=== PATIENT | female | born 1965 | race Caucasian/White ===

== ENCOUNTER 2021-01-29 07:54 | Inpatient (IN) ==
[2021-01-29] MEDS ORDERED: ANCEF 1 GRAM IV PREMIX* 2 G/100 ML BAG IV ONE (08:02)
[2021-01-29] MEDS ORDERED: LR 1000 ML IV 1,000 ML IV ONE (08:02)
[2021-01-29] MEDS ORDERED: DILAUDID INJ ONE ×2 (08:25→09:08)
[2021-01-29] MEDS ORDERED: CATAPRES TAB 0.3 MG ONE (08:49)
[2021-01-29] MEDS ORDERED: CATAPRES TAB 0.3 MG PO ONE (08:51)
[2021-01-29] MEDS ORDERED: BACTROBAN TOPICAL OINT ONE (08:57)
[2021-01-29] MEDS ORDERED: BRIDION ONE (09:08)
[2021-01-29] MEDS ORDERED: DECADRON INJ ONE ×2 (09:08→09:10)
[2021-01-29] MEDS ORDERED: TORADOL 30 MG VIAL ONE ×2 (09:08→09:10)
[2021-01-29] MEDS ORDERED: ZEMURON 50 MG VIAL ONE (09:09)
[2021-01-29] MEDS ORDERED: OFIRMEV IV 1000 MG VIAL 1,000 MG/100 ML VIAL IV ONE (09:09)
[2021-01-29] MEDS ORDERED: NS 1000 ML 1,000 ML ONE (09:09)
[2021-01-29] MEDS ORDERED: DIPRIVAN VIAL ONE (09:10)
[2021-01-29] MEDS ORDERED: VERSED ONE (09:10)
[2021-01-29] MEDS ORDERED: ZOFRAN INJ 4 MG VIAL ONE (09:10)
[2021-01-29] MEDS ORDERED: NORMODYNE INJ 20 MG VIAL ONE (09:10)
[2021-01-29] MEDS ORDERED: ULTANE GAS IN ONE (09:10)
[2021-01-29] MEDS ORDERED: POLYMYXIN B SULFATE ONE (11:10)
[2021-01-29] MEDS ORDERED: BARHEMSYS INJ IVP PRN (12:00)
[2021-01-29] MEDS ORDERED: REGLAN INJ 10 MG VIAL IVP PRN (12:00)
[2021-01-29] MEDS ORDERED: ZOFRAN INJ 4 MG VIAL IVP PRN ×2 (12:00→14:32)
[2021-01-29] MEDS ORDERED: PHENERGAN INJ 25 MG IM PRN (12:00)
[2021-01-29] MEDS ORDERED: BENADRYL INJ 50 MG VIAL IVP PRN (12:00)
[2021-01-29] MEDS ORDERED: DILAUDID INJ IVP PRN (12:00)
[2021-01-29 14:29] VITALS: BMI 36.1
[2021-01-29] MEDS ORDERED: D5 1/2 NS 1000 ML 1,000 ML IV ONE (15:30)
[2021-01-29] MEDS ORDERED: APRESOLINE INJ 20 MG VIAL IVP PRN (16:50)
[2021-01-29] MEDS: D5 1/2 NS 1000 ML 1,000 ML IV SCH ×2 (17:38→23:53)
[2021-01-29] MEDS: MORPHINE SULFATE INJ 4 MG IVP PRN (22:50)
[2021-01-30] MEDS: MORPHINE SULFATE INJ 4 MG IVP PRN ×2 (02:00→06:08)
[2021-01-30] MEDS: D5 1/2 NS 1000 ML 1,000 ML IV SCH ×2 (02:25→06:38)
[2021-01-30 06:28] LABS: BASOPHILS % (AUTO) 0.4 % (0.2-1.0); EOSINOPHILS % (AUTO) 0.6 % (0.9-2.9); HEMOGLOBIN 15.1 g/dL (12.0-16.0); LYMPHOCYTES # (AUTO) 1.4 X10^3/uL (1.3-2.9); LYMPHOCYTES % (AUTO) 19.1 % (21.0-51.0); MEAN CORPUSCULAR HEMOGLOBIN 29.6 pg (27.0-34.0); MEAN CORPUSCULAR HGB CONC 35.2 g/dL (33.0-35.0); MEAN PLATELET VOLUME 11.4 fL (7.4-11.0); MONOCYTES # (AUTO) 0.6 x10^3/uL (0.3-0.8); MONOCYTES % (AUTO) 7.8 % (0.0-13.0); NEUTROPHILS # (AUTO) 5.3 x10^3/uL (2.2-4.8); NEUTROPHILS % (AUTO) 72.1 % (42.0-75.0); PLATELET COUNT 120 X10^3/uL (150.0-450.0); RED BLOOD COUNT 5.12 X10^6/uL (3.5-5.4); RED CELL DISTRIBUTION WIDTH 13.9 % (11.6-16.5); WHITE BLOOD COUNT 7.3 X10^3/uL (3.6-10.0)
[2021-01-30 06:33] LABS: ALANINE AMINOTRANSFERASE 40 Units/L (12-78); ALBUMIN 3.2 g/dL (3.4-5.0); ALKALINE PHOSPHATASE 69 Units/L (46-116); ASPARTATE AMINO TRANSFERASE 57 Units/L (15-37); BLOOD UREA NITROGEN 14 mg/dL (7-18); CALCIUM 8.9 mg/dL (8.5-10.1); CARBON DIOXIDE 33.6 mmol/L (21-32); CHLORIDE 96 mmol/L (98-107); COR CA(FOR HYPOALB) 9.5 mg/dL (8.5-10.1); COR NA(FOR HYPERGLY) 140 mmol/L (136-145); CREATININE 0.67 mg/dL (0.55-1.02); SODIUM 136 mmol/L (136-145); TOTAL PROTEIN 7.2 g/dL (6.4-8.2); eGFR NON BLACK RACES > 60 (>60)
[2021-01-30] MEDS ORDERED: HumuLIN R SC PRN (08:06)
[2021-01-30] MEDS ORDERED: PERCOCET TAB 5/325 MG PO PRN (08:17)
[2021-01-30] MEDS ORDERED: ZESTRIL TAB 20 MG ONE (08:59)
[2021-01-30] MEDS ORDERED: ZESTRIL TAB 20 MG PO SCH (09:00)
[2021-01-30] MEDS ORDERED: PROTONIX INJ 40 MG VIAL IVP SCH (09:00)
[2021-01-30] MEDS ORDERED: INDERAL TAB 10 MG PO SCH (09:00)
[2021-01-30] MEDS ORDERED: TORADOL TAB PO PRN (09:14)
[2021-01-30] MEDS ORDERED: DIABETA PO SCH (11:00)
[2021-01-30] MEDS ORDERED: GLUCOPHAGE PO SCH (11:00)
[2021-01-30] MEDS ORDERED: GLUCOPHAGE ONE (11:34)
[2021-01-30 12:15] VITALS: BP 125/60
--- NOTE | 2021-01-30 14:01 | DR.CONSULT ---
CONSULT Consultation for Day of: Date: 02/03/21 Chief Complaint Chief Complaint: Abdominal pain Allergies Allergies Allergy/AdvReac Type Severity Reaction Status Date / Time codeine AdvReac Verified 11/06/18 11:57 History of Present Illness History of Present Illness: Ms. Eddy is a 55y/o female with a PMH of HTN, Type 2 DM was seen outpatient due to having recurrent admissions for biliary colic. Patient was seeing Dr Fairbanks and was scheduled to have cholecystectomy as outpatient. The patient was found to have left side gallbladder position as well as the liver irregularities and possible early cirrhosis. The liver was on the left side. The gallbladder anatomy was somewhat distorted so patient had to have a open procedure and had cholecystectomy without any complications. Her BP was elevated yesterday and received one dose of clonidine. She does take lisinopril and propranolol at home. Past Medical History Past Medical History: Diabetes and Hypertension Past Surgical History Surgical History: Family History Family Medical History: Diabetes Mellitus, Cancer, [place], Coronary Artery Disease, Heart Failure and Hypertension Social History Does patient currently use any type of tobacco product: No Have you used tobacco products in the last 12 months: No Type of Tobacco Use: None Does any household member use tobacco: No Alcohol Use: Occasionally Drug Use: None Medications Home Medications: codeine Adverse Reaction (Verified 11/06/18 11:57) CONTINUE taking the following medications fluconazole 200 mg PO WEEKLY 01/30/21 [History] glyburide 10 mg PO DAILY 01/30/21 [History] metformin 1,000 mg PO DAILY 01/30/21 [History] ondansetron 8 mg PO TID 01/30/21 [History] propranolol 20 mg PO DAILY 01/30/21 [History] sertraline 100 mg PO BID 01/30/21 [History] tramadol 100 mg PO Q8H PRN 01/30/21 [History] New Prescriptions ketorolac 10 mg PO Q6H PRN #15 tab 01/30/21 [Rx] Review of Systems Constitutional: No Symptoms Reported Eyes: No Symptoms Reported ENT: No Symptoms Reported Respiratory: No Symptoms Reported Gastrointestinal: Nausea, Vomiting and Abdominal Pain Genitourinary: No Symptoms Reported Musculoskeletal: No Symptoms Reported Skin: No Symptoms Reported Neurological: No Symptoms Reported Physical Exam Vital Signs: Temperature 98.7 F Pulse Rate [Radial] 92 Pulse Rate 88 Respiratory Rate 20 Blood Pressure [Right Arm] 125/60 Blood Pressure [Left Arm] 188/86 Blood Pressure 146/67 O2 Sat by Pulse Oximetry 93 Oriented: Normal Eyes: Normal Ear: Normal Nose: Normal Throat: Normal Respiratory: Clear Throughout Cardiovascular: Normal Auscultation: Bowel Sounds: Normal and Other (TREY drain noted, dressing intact ) Tenderness: Diffuse and Mild Skin: Normal Musculoskeletal: Normal Psychiatric: Normal Mood Description: Calm Affect: Normal Speech Pattern: Clear and Appropriate Plan Plan: She recovered well post-op. She is tolerating oral intake and pain was well controlled. Resume home medications. Patient will f/u with Dr Fairbanks in clinic to discuss biopsy results. She is stable for discharge as per surgery recommendations.
[2021-01-30] MEDS ORDERED: SNACK - Diabetic Appropriate PO SCH (20:00)
== END 2021-01-30 13:55 | disposition home or self-care (01) | DRG 419 ==
LOC: SURG1 07:54 → MED/SURG 14:57
PROVIDERS: ADMIT Surgery; ATTEND Surgery
DX: Z20.822 Contact with and (suspected) exposure to COVID-19; Q45.8 Other specified congenital malformations of digestive system; E11.65 Type 2 diabetes mellitus with hyperglycemia; I10 Essential (primary) hypertension; E66.01 Morbid (severe) obesity due to excess calories; K76.89 Other specified diseases of liver; R10.84 Generalized abdominal pain; K80.10 Calculus of gallbladder with chronic cholecystitis without obstruction; K76.0 Fatty (change of) liver, not elsewhere classified

== ENCOUNTER 2021-02-06 22:42 | Observation (INO) ==
[2021-02-06 22:50] VITALS: BMI 36.1
--- NOTE | 2021-02-06 23:09 | ED.ABDFE ---
HPI Time Seen Time Seen by Provider: 02/06/21 23:04 PCP Primary Care Physician: onofre Archuleta HPI Comment HPI Comment: PATIENT WITH A HISTORY KIDNEY STONES, HYPERTENSION AND DIABETES UNDER WENT AN OPEN CHOLECYSTECTOMY ON 01/29/2021 COMPLAINS OF LEFT FLANK AND LEFT SIDED ABDOMINAL PAIN. DENIES NAUSEA, EMESIS, DIARRHEA OR URINARY SYMPTOMS. Complaint Doctors Chief Complaint Comments: LEFT SIDED ABDOMINAL PAIN Chief Complaint:: Lt sided abdominal pain moved from the Lt side of her back. Hx of kidney stones. Surgery for gallbladder on 01/29/21. COVID-19 Coronavirus risk:travel/contact w/high risk person: No Reviewed Nurses Notes Review: Yes Source History Provided: Patient Mode of arrival Mode of Arrival: Ambulatory Timing Onset of Chief Complaint: 02/04/21 Duration How lon Duration: Days Location Location: [facility] Context History of: Abdominal surgery PMH PMH Past Medical History: Yes Past Medical History: Diabetes and Hypertension Past Medical History Comment: MS Past Surgical History: Yes Surgical History: and Cholecystectomy Family History History of Family Medical Conditions: Yes Family Medical History: Diabetes Mellitus, Cancer, [place], Coronary Artery Disease, Heart Failure and Hypertension Social History Do you use any recreational Drugs:: No Infectious screening Have you traveled outside the country in the last 6 months?: No Isolation: Standard ROS Review of Systems Constitutional: See HPI Eyes: No Symptoms Reported ENTM: No Symptoms Reported Respiratoy: No Symptoms Reported Cardiovascular: No Symptoms Reported Gastrointestinal/Abdominal: See HPI, Abdominal Pain and Vomiting Genitourinary: Pain Neurological: No Symptoms Reported Musculoskeletal: No Symptoms Reported Integumentary: No Symptoms Reported Hematologic/Lymphatic: No Symptoms Reported Endocrine: No Symptoms Reported Psychiatric: No Symptoms Reported All Other Systems: Reviewed and Negative PE Vital Signs Vitals: Temperature 97.8 F Pulse Rate [Left] 100 Pulse Rate 99 Respiratory Rate 18 Blood Pressure [Right Arm] 145/67 Blood Pressure 156/71 O2 Sat by Pulse Oximetry 95 General Limitations: Physical Limitation General Appearance: Alert and In No Apparent Distress Head Head Exam: Normal Inspection and Atraumatic Eyes Eye exam: Normal Appearance, PERRL and EOMI Neck Neck Exam: Normal Inspection, Full ROM and Trachea Midline Chest Chest Inspection: Normal Inspection and Symmetric Chest Wall Rise Respiratory Respiratory Exam: Normal Lung Sounds Bilat Respiratory Exam: Bilateral: Clear to Auscultation Cardiovascular Cardiovascular Exam: Normal Rhythm and Tachycardia Abdominal Exam Abdominal Exam: Normal Inspection and Normal Bowel Sounds Abdominal Tenderness: LUQ Back Back Exam: (L) CVA Tenderness Extremeties Extremities Exam: Normal Inspection, Full ROM and Tenderness Neurologic Neurological Exam: Alert and Oriented X3 MDM Differential Diagnosis Differential Diagnosis- Considerations may include:: Inflammatory BD, Pancr eatitis, Urinary obstruction, Urinary tract infection and Urolithiasis COURSE Treatment Treatment: IV NORMAL SALINE 500ML/HR, ZOFRAN 4MG, MORPHINE 4MG IV X 2 DOSES Consultation Call Returned: 02:30 Consultation Comments: DISCUSSED WITH DR BRUNNER FOR ADMIT TO OBSERVATION ROR Labs Reviewed Laboratory Results Reviewed?: Yes Result Diagrams: 02/06/21 23:36 02/06/21 23:36 Laboratory: WBC 5.8 X10^3/uL (3.6-10.0) 02/06/21 23:36 RBC 4.90 X10^6/uL (3.5-5.4) 02/06/21 23:36 Hgb 14.8 g/dL (12.0-16.0) 02/06/21 23:36 Hct 40.8 % (36.0-47.0) 02/06/21 23:36 MCV 83.3 fL (80.0-100.0) 02/06/21 23:36 MCH 30.1 pg (27.0-34.0) 02/06/21 23:36 MCHC 36.1 g/dL (33.0-35.0) H 02/06/21 23:36 RDW 14.3 % (11.6-16.5) 02/06/21 23:36 Plt Count 158 X10^3/uL (150.0-450.0) 02/06/21 23:36 MPV 11.5 fL (7.4-11.0) H 02/06/21 23:36 Neut % (Auto) 74.3 % (42.0-75.0) 02/06/21 23:36 Lymph % (Auto) 14.9 % (21.0-51.0) L 02/06/21 23:36 [place] % (Auto) 8.1 % (0.0-13.0) 02/06/21 23:36 Eos % (Auto) 2.1 % (0.9-2.9) 02/06/21 23:36 Baso % (Auto) 0.6 % (0.2-1.0) 02/06/21 23:36 Neut # (Auto) 4.3 x10^3/uL (2.2-4.8) 02/06/21 23:36 Lymph # (Auto) 0.9 X10^3/uL (1.3-2.9) L 02/06/21 23:36 [place] # (Auto) 0.5 x10^3/uL (0.3-0.8) 02/06/21 23:36 Eos # (Auto) 0.1 x10^3/uL (0.0-0.2) 02/06/21 23:36 Baso # (Auto) 0.0 X10^3/uL (0.0-0.1) 02/06/21 23:36 Absolute Nucleated RBC 0.1 /100WBC 02/06/21 23:36 Sodium 136 mmol/L (136-145) 02/06/21 23:36 Corrected Sodium 139 mmol/L (136-145) 02/06/21 23:36 Potassium 2.9 mmol/L (3.5-5.1) L* 02/06/21 23:36 Chloride 99 mmol/L (98-107) 02/06/21 23:36 Carbon Dioxide 29.7 mmol/L (21-32) 02/06/21 23:36 BUN 20 mg/dL (7-18) H 02/06/21 23:36 Creatinine 0.71 mg/dL (0.55-1.02) 02/06/21 23:36 Est GFR (MDRD) Af Amer > 60 (>60) 02/06/21 23:36 Est GFR (MDRD) Non-Af > 60 (>60) 02/06/21 23:36 Glucose 217 mg/dL (65-99) H 02/06/21 23:36 Calcium 8.7 mg/dL (8.5-10.1) 02/06/21 23:36 Corrected Calcium 9.3 mg/dL (8.5-10.1) 02/06/21 23:36 Total Bilirubin 2.00 mg/dL (0.2-1.0) H 02/06/21 23:36 AST 31 Units/L (15-37) 02/06/21 23:36 ALT 27 Units/L (12-78) 02/06/21 23:36 Alkaline Phosphatase 72 Units/L (46-116) 02/06/21 23:36 Total Protein 7.1 g/dL (6.4-8.2) 02/06/21 23:36 Albumin 3.3 g/dL (3.4-5.0) L 02/06/21 23:36 Globulin 3.8 g/dL (2.5-4.5) 02/06/21 23:36 Albumin/Globulin Ratio 0.9 Ratio (1.1-2.1) L 02/06/21 23:36 Amylase 39 Units/L (25-115) 02/06/21 23:36 Lipase 130 Units/L (73-393) 02/06/21 23:36 Specimen Type Clean catch urine 02/07/21 00:40 Urine Color Tracie (YELLOW) 02/07/21 00:40 Urine Appearance Clear (CLEAR) 02/07/21 00:40 Urine pH 6.0 (5.0 - 8.0) 02/07/21 00:40 Ur Specific [place] 1.025 (1.000-1.030) 02/07/21 00:40 Urine Protein 3+ (NEGATIVE) 02/07/21 00:40 Urine Glucose (UA) 2+ (NEGATIVE) 02/07/21 00:40 Urine Ketones 2+ (NEGATIVE) 02/07/21 00:40 Urine Occult Blood 1+ (NEGATIVE) 02/07/21 00:40 Urine Nitrite Negative (NEGATIVE) 02/07/21 00:40 Urine Bilirubin 1+ (NEGATIVE) 02/07/21 00:40 Urine Urobilinogen 2+ (NORMAL) 02/07/21 00:40 Ur Leukocyte Esterase Negative (NEGATIVE) 02/07/21 00:40 Urine RBC 0-2 /HPF (0-3) 02/07/21 00:40 Urine WBC None seen /HPF (0-5) 02/07/21 00:40 Ur Squamous Epith Cells Few /HPF (NEGATIVE) 02/07/21 00:40 Calcium Oxalate Crystal Moderate /HPF (NEGATIVE) 02/07/21 00:40 Urine Bacteria Trace /HPF (NEGATIVE) 02/07/21 00:40 Urine Mucus Moderate /HPF (NEGATIVE) 02/07/21 00:40 Ur Culture Indicated? No/not indicated 02/07/21 00:40 XRAY XRAY Interpreted by: Radiologist (ABDOMINAL PELVIC CT WITH INTRAVENOUS CONTRAST C/W SITUS INVERSUS WITHIN THE ABDOMEN, POST CHOLECYSTECTOMY CHANGES, NO FREE FLUID OR FREE AIR IS SEEN. NORMAL APPENDIX LEFT LOWER QUAD, NO BOWEL WALL THICKENING OR DILATION, MODERATE SIZED LEFT PLEURAL EFFUSION WITH COMPRESSIVE ATELECTASIS ) Opioid Opioid Risk Tool Age (Ronak box if 16-45): No History of Preadolescent Sexual Abuse: No Total: 0 Total Score Risk Category: Low Risk Copyright: Danny MARTÍNEZ predicting aberrant behaviors Diagnosis Discharge Problem: Postoperative abdominal pain
[2021-02-06] MEDS ORDERED: ZOFRAN INJ 4 MG VIAL IVP ONE (23:13)
[2021-02-06] MEDS ORDERED: MORPHINE SULFATE INJ 4 MG IVP ONE (23:13)
[2021-02-06] MEDS ORDERED: NS 1000 ML 1,000 ML IV STA (23:13)
[2021-02-06] MEDS ORDERED: NS 1000 ML 1,000 ML ONE (23:21)
[2021-02-06] MEDS ORDERED: MORPHINE SULFATE INJ 4 MG ONE (23:21)
[2021-02-06] MEDS ORDERED: ZOFRAN INJ 4 MG VIAL ONE (23:21)
[2021-02-06 23:59] LABS: BASOPHILS % (AUTO) 0.6 % (0.2-1.0); EOSINOPHILS # (AUTO) 0.1 x10^3/uL (0.0-0.2); EOSINOPHILS % (AUTO) 2.1 % (0.9-2.9); HEMATOCRIT 40.8 % (36.0-47.0); HEMOGLOBIN 14.8 g/dL (12.0-16.0); LYMPHOCYTES # (AUTO) 0.9 X10^3/uL (1.3-2.9); LYMPHOCYTES % (AUTO) 14.9 % (21.0-51.0); MEAN CORPUSCULAR HEMOGLOBIN 30.1 pg (27.0-34.0); MEAN CORPUSCULAR HGB CONC 36.1 g/dL (33.0-35.0); MEAN CORPUSCULAR VOLUME 83.3 fL (80.0-100.0); MEAN PLATELET VOLUME 11.5 fL (7.4-11.0); MONOCYTES # (AUTO) 0.5 x10^3/uL (0.3-0.8); MONOCYTES % (AUTO) 8.1 % (0.0-13.0); NEUTROPHILS # (AUTO) 4.3 x10^3/uL (2.2-4.8); NEUTROPHILS % (AUTO) 74.3 % (42.0-75.0); PLATELET COUNT 158 X10^3/uL (150.0-450.0); RED CELL DISTRIBUTION WIDTH 14.3 % (11.6-16.5); WHITE BLOOD COUNT 5.8 X10^3/uL (3.6-10.0)
[2021-02-07] MEDS ORDERED: MORPHINE SULFATE INJ 4 MG IVP ONE (00:04)
[2021-02-07 00:14] LABS: ALANINE AMINOTRANSFERASE 27 Units/L (12-78); ALBUMIN 3.3 g/dL (3.4-5.0); ALKALINE PHOSPHATASE 72 Units/L (46-116); AMYLASE 39 Units/L (25-115); ASPARTATE AMINO TRANSFERASE 31 Units/L (15-37); BLOOD UREA NITROGEN 20 mg/dL (7-18); CALCIUM 8.7 mg/dL (8.5-10.1); CARBON DIOXIDE 29.7 mmol/L (21-32); CHLORIDE 99 mmol/L (98-107); COR CA(FOR HYPOALB) 9.3 mg/dL (8.5-10.1); COR NA(FOR HYPERGLY) 139 mmol/L (136-145); CREATININE 0.71 mg/dL (0.55-1.02); LIPASE 130 Units/L (73-393); SODIUM 136 mmol/L (136-145); TOTAL PROTEIN 7.1 g/dL (6.4-8.2); eGFR NON BLACK RACES > 60 (>60)
[2021-02-07] MEDS ORDERED: MORPHINE SULFATE INJ 4 MG ONE (00:17)
[2021-02-07] MEDS ORDERED: POTASSIUM CHLORIDE LIQ 20 MEQ UDC PO ONE (00:24)
[2021-02-07] MEDS ORDERED: K-DUR TAB 20 MEQ PO ONE ×2 (00:54→00:55)
[2021-02-07 00:58] LABS: BILIRUBIN,URINE 1+ (NEGATIVE); BLOOD/HEMOGLOBIN,URINE 1+ (NEGATIVE); GLUCOSE, URINE 2+ (NEGATIVE); KETONES,URINE 2+ (NEGATIVE); LEUKOCYTE ESTERASE ,URINE NEGATIVE (NEGATIVE); NITRITES,URINE NEGATIVE (NEGATIVE); PROTEIN,URINE 3+ (NEGATIVE); UROBILINOGEN,URINE 2+ (NORMAL)
[2021-02-07 01:05] LABS: APPEARANCE,URINE CLEAR (CLEAR); BACTERIA,URINE TRACE /HPF (NEGATIVE); CALCIUM OXALATE CRYSTALS,UR MODERATE /HPF (NEGATIVE); COLOR,URINE AMBER (YELLOW); MUCUS,URINE MODERATE /HPF (NEGATIVE); RBC,URINE 0-2 /HPF (0-3); SQUAMOUS EPITHELIAL CELL,UR FEW /HPF (NEGATIVE)
[2021-02-07] MEDS ORDERED: MICRO K EXTEN CAP 10 MEQ PO ONE ×2 (01:15→01:17)
--- NOTE | 2021-02-07 01:39 | CT ---
HISTORYPT C/O LEFT SIDED ABD PAIN THAT RADIATES TO BACKSTUDYABDOMEN/PELVIS WITH [id number] axial images of the abdomen and pelvis were obtained from the lung bases to the pubic symphysis after the administration of IV contrast. Dose reduction techniques including Automated Exposure Control (AEC) and adjustment of mA and kV were utilized.FINDINGSThe visualized portions of the lung bases demonstrate a moderate-sized left pleural effusion with compressive atelectasis involving the left lower lobe a increased from previous 01/12/2021. 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 The liver, pancreas, kidneys, and adrenal glands are unremarkable in their CT appearance the spleen is enlarged measuring 13.8 cm in length.. Post cholecystectomy changes. no significant mesenteric lymphadenopathy or stranding can be observed. No free fluid or free air is seen within the abdomen. Normal appendix left lower quadrant. No bowel wall thickening or bowel dilatation is present. The colon is unremarkable. Specifically, there is no diverticulosis noted within the sigmoid colon. The urinary bladder is grossly unremarkable. The uterus is present. The bony structures are grossly intact. Small fat containing umbilical hernia.IMPRESSIONModerate-sized left pleural effusion with compressive atelectasis involving the left lower lobe.Splenomegaly.Small fat containing umbilical hernia.Electronically signed by: Can Liao (Feb 07, 2021 01:37:36)
[2021-02-07] MEDS ORDERED: ZOFRAN INJ 4 MG VIAL IVP ONE (02:44)
[2021-02-07] MEDS ORDERED: ZOFRAN INJ 4 MG VIAL ONE ×2 (02:45→10:02)
[2021-02-07] MEDS ORDERED: ZOFRAN INJ 4 MG VIAL IVP PRN (03:15)
[2021-02-07] MEDS ORDERED: NS 1000 ML 1,000 ML IV SCH (03:15)
[2021-02-07] MEDS ORDERED: HumuLIN R SUBCUT PRN (03:15)
[2021-02-07] MEDS ORDERED: NS + KCL 20 MEQ/L 1,000 ML IV ONE ×2 (03:16→08:30)
[2021-02-07] MEDS ORDERED: DILAUDID INJ ONE ×2 (03:20→11:41)
[2021-02-07] MEDS: NS + KCL 20 MEQ/L 1,000 ML IV SCH ×2 (03:24→08:33)
[2021-02-07] MEDS: DILAUDID INJ IVP PRN ×2 (03:25→11:46)
[2021-02-07 06:05] LABS: BASOPHILS % (AUTO) 0.7 % (0.2-1.0); EOSINOPHILS # (AUTO) 0.1 x10^3/uL (0.0-0.2); EOSINOPHILS % (AUTO) 1.8 % (0.9-2.9); HEMATOCRIT 40.1 % (36.0-47.0); HEMOGLOBIN 14.2 g/dL (12.0-16.0); LYMPHOCYTES # (AUTO) 0.7 X10^3/uL (1.3-2.9); LYMPHOCYTES % (AUTO) 14.4 % (21.0-51.0); MEAN CORPUSCULAR HEMOGLOBIN 29.8 pg (27.0-34.0); MEAN CORPUSCULAR HGB CONC 35.4 g/dL (33.0-35.0); MEAN CORPUSCULAR VOLUME 84.3 fL (80.0-100.0); MEAN PLATELET VOLUME 10.9 fL (7.4-11.0); MONOCYTES # (AUTO) 0.3 x10^3/uL (0.3-0.8); MONOCYTES % (AUTO) 5.9 % (0.0-13.0); NEUTROPHILS % (AUTO) 77.2 % (42.0-75.0); PLATELET COUNT 152 X10^3/uL (150.0-450.0); RED BLOOD COUNT 4.75 X10^6/uL (3.5-5.4); RED CELL DISTRIBUTION WIDTH 14.1 % (11.6-16.5); WHITE BLOOD COUNT 5.2 X10^3/uL (3.6-10.0)
[2021-02-07 06:15] LABS: ALANINE AMINOTRANSFERASE 29 Units/L (12-78); ALBUMIN 3.2 g/dL (3.4-5.0); ALKALINE PHOSPHATASE 69 Units/L (46-116); ASPARTATE AMINO TRANSFERASE 28 Units/L (15-37); BLOOD UREA NITROGEN 17 mg/dL (7-18); CALCIUM 8.3 mg/dL (8.5-10.1); CARBON DIOXIDE 29.7 mmol/L (21-32); CHLORIDE 100 mmol/L (98-107); COR CA(FOR HYPOALB) 8.9 mg/dL (8.5-10.1); COR NA(FOR HYPERGLY) 140 mmol/L (136-145); CREATININE 0.62 mg/dL (0.55-1.02); MAGNESIUM 1.6 mg/dL (1.7-2.9); SODIUM 137 mmol/L (136-145); TOTAL PROTEIN 6.9 g/dL (6.4-8.2); eGFR NON BLACK RACES > 60 (>60)
[2021-02-07] MEDS ORDERED: INDERAL TAB 10 MG PO SCH (09:00)
[2021-02-07 12:51] VITALS: BP 147/65
[2021-02-07] MEDS ORDERED: PHENERGAN INJ 25 MG IM ONE ×2 (13:00→13:02)
[2021-02-07] MEDS ORDERED: REGLAN INJ 10 MG VIAL ONE (13:03)
[2021-02-07] MEDS ORDERED: REGLAN INJ 10 MG VIAL IVP ONE (13:03)
== END 2021-02-07 16:00 | disposition home or self-care (01) ==
LOC: ER 22:42 → U 22:42
PROVIDERS: ADMIT Surgery; ATTEND Surgery
DX: Z90.49 Acquired absence of other specified parts of digestive tract; R10.84 Generalized abdominal pain; G89.18 Other acute postprocedural pain; J90 Pleural effusion, not elsewhere classified; E11.65 Type 2 diabetes mellitus with hyperglycemia; I10 Essential (primary) hypertension; Z20.822 Contact with and (suspected) exposure to COVID-19; R16.1 Splenomegaly, not elsewhere classified; E66.01 Morbid (severe) obesity due to excess calories; E87.6 Hypokalemia; K74.69 Other cirrhosis of liver; Z87.442 Personal history of urinary calculi